=== PATIENT | female | born 1995 | race Two or more races ===

== ENCOUNTER 2025-08-25 09:24 | Emergency (ER) | payer SELFPAY ==
[2025-08-25] MEDS ORDERED: Lidocaine 1% (PF) 30 ML VIAL ONE (10:34)
== END 2025-08-25 11:20 | disposition home or self-care (01) ==
LOC: ERS 09:24
DX: N75.1 Abscess of Bartholin's gland (principal)
CPT/HCPCS: 56420; J2003